=== PATIENT | male | born 1975 | race Caucasian/White ===

== ENCOUNTER 2018-04-08 22:38 | Emergency (ER) | payer OTHER ==
[2018-04-08 23:56] LABS: ADD MAN DIFF? NO
[2018-04-08] MEDS: FAMOTIDINE 20 MG INJ IV (23:56)
[2018-04-08] MEDS: METOCLOPRAMIDE 10 MG INJ IV (23:56)
[2018-04-08] MEDS: DIPHENHYDRAMINE 50 MG INJ IV (23:56)
[2018-04-08] MEDS: SOD CHLORIDE 0.9% 1,000 ML IV (23:56)
[2018-04-08 23:58] LABS: WHITE BLOOD COUNT 9.6 10^3/ul (4.8-10.8)
[2018-04-08 23:58] LABS: BASOPHIL # 0.1 10^3/ul (0.0-0.1); BASOPHILS % 0.5 % (0.0-2.0); EOSINOPHILS # 0.1 10^3/ul (0.0-0.5); EOSINOPHILS % 0.6 % (0.0-7.0); HEMATOCRIT 48.3 % (42.0-52.0); HEMOGLOBIN 16.3 g/dl (14.0-18.0); LYMPHOCYTES # 2.1 10^3/ul (0.8-2.9); LYMPHOCYTES % 21.5 % (15.0-51.0); MEAN CORPUSCULAR HEMOGLOBIN 31.7 pg (29.0-33.0); MEAN CORPUSCULAR HGB CONC 33.7 g/dl (32.0-37.0); MEAN PLATELET VOLUME 8.5 fl (7.4-10.4); MONOCYTE # 0.9 10^3/ul (0.3-0.9); MONOCYTES % 9.3 % (0.0-11.0); NEUTROPHIL # 6.5 10^3/ul (1.6-7.5); NEUTROPHILS % 67.6 % (39.0-77.0); PLATELET COUNT 249 10^3/UL (140-415); RED BLOOD COUNT 5.14 10^6/ul (4.70-6.10)
[2018-04-09 00:17] LABS: ALANINE AMINOTRANSFERASE 8 IU/L (13-69); ALBUMIN/GLOBULIN RATIO 1.31; ALKALINE PHOSPHATASE 61 IU/L (42-121); ANION GAP 13 (5-13); ASPARTATE AMINO TRANSFERASE 17 IU/L (15-46); BILIRUBIN,INDIRECT 1.3 mg/dl (0-1.1); BILIRUBIN,TOTAL 1.3 mg/dl (0.2-1.3); BLOOD UREA NITROGEN 27 mg/dl (7-20); CALCIUM 10.3 mg/dl (8.4-10.2); CARBON DIOXIDE 26 mmol/L (21-31); CHLORIDE 101 mmol/L (97-110); CREATININE 0.92 mg/dl (0.61-1.24); Estimated GFR > 60 mL/min (>60); GLUCOSE 160 mg/dl (70-220); LIPASE 51 U/L (23-300); POTASSIUM 3.7 mmol/L (3.5-5.1); SODIUM 140 mmol/L (135-144); TOTAL PROTEIN 8.8 g/dl (6.1-8.1)
[2018-04-09] MEDS: HYDROmorphONE 2 MG/ML SYG IV (00:28)
[2018-04-09 00:29] LABS: TROPONIN-I < 0.012 ng/ml (0.000-0.120)
[2018-04-09 01:58] LABS: URINE BLOOD (Dip) POC Negative (NEGATIVE); URINE GLUCOSE (Dip) POC Negative (NEGATIVE); URINE KETONES (Dip) POC Trace (NEGATIVE); URINE LEUKOCYTE EST (Dip) POC Negative (NEGATIVE); URINE NITRITE (Dip) POC Negative (NEGATIVE); URINE TOTAL PROTEIN POC 2+ (NEGATIVE)
[2018-04-09] MEDS ORDERED: HYDROmorphONE 2 MG/ML SYG IV (02:27)
[2018-04-09] MEDS: HYDROmorphONE 1 MG/ML SYG IV (02:36)
[2018-04-09] MEDS: DIATR MEGLU/DIATRIZOATE SODIUM 120 ML BTL PO (02:55)
== END 2018-04-09 03:20 | disposition home or self-care (01) ==
LOC: E/R 22:38
DX: R10.84 Generalized abdominal pain (principal); R11.10 Vomiting, unspecified
CPT/HCPCS: 36415; 74176; 80053; 81003; 83690; 84484; 85025; 93005; 96374; 96375; 96376; 99285-25

== ENCOUNTER 2018-04-13 22:19 | Inpatient (IN) | payer OTHER ==
[2018-04-13] MEDS: PANTOPRAZOLE IV 80 MG in SOD CHLORIDE 0.9% 100 ML IV (22:34)
[2018-04-13] MEDS: ONDANSETRON 4 MG INJ IV (22:55)
[2018-04-13] MEDS: morphine 4 MG/ML VIAL IV (22:55)
[2018-04-13] MEDS: CEFTRIAXONE 1 GM/50 ML (PMX) 50 ML IVPB (22:56)
[2018-04-13] MEDS: SOD CHLORIDE 0.9% 1,000 ML IV (22:56)
[2018-04-13 23:05] LABS: ADD MAN DIFF? NO
[2018-04-13 23:14] LABS: BASOPHIL # 0.1 10^3/ul (0.0-0.1); BASOPHILS % 0.5 % (0.0-2.0); EOSINOPHILS % 0.1 % (0.0-7.0); HEMATOCRIT 47.1 % (42.0-52.0); HEMOGLOBIN 16.7 g/dl (14.0-18.0); LYMPHOCYTES # 2.1 10^3/ul (0.8-2.9); MEAN CORPUSCULAR HEMOGLOBIN 32.2 pg (29.0-33.0); MEAN CORPUSCULAR HGB CONC 35.5 g/dl (32.0-37.0); MEAN CORPUSCULAR VOLUME 90.8 fl (82.0-101.0); MEAN PLATELET VOLUME 9.1 fl (7.4-10.4); MONOCYTES % 7.7 % (0.0-11.0); NEUTROPHIL # 9.9 10^3/ul (1.6-7.5); NEUTROPHILS % 75.1 % (39.0-77.0); PLATELET COUNT 305 10^3/UL (140-415); RED BLOOD COUNT 5.19 10^6/ul (4.70-6.10)
[2018-04-13 23:14] LABS: WHITE BLOOD COUNT 13.2 10^3/ul (4.8-10.8)
[2018-04-13] MEDS: ONDANSETRON INJ 8 MG in DEXTROSE 5% 50 ML IVPB (23:37)
[2018-04-13] MEDS: OCTREOTIDE 50 MCG in SOD CHLORIDE 0.9% 25 ML IVPB (23:37)
[2018-04-13] MEDS: PANTOPRAZOLE IV 80 MG in SOD CHLORIDE 0.9% 100 ML IVPB (23:37)
[2018-04-13 23:39] LABS: ALANINE AMINOTRANSFERASE 14 IU/L (13-69); ALBUMIN 5.1 g/dl (3.3-4.9); ALBUMIN/GLOBULIN RATIO 1.27; ALKALINE PHOSPHATASE 72 IU/L (42-121); ANION GAP 20 (5-13); ASPARTATE AMINO TRANSFERASE 21 IU/L (15-46); BILIRUBIN,INDIRECT 0.8 mg/dl (0-1.1); BILIRUBIN,TOTAL 0.8 mg/dl (0.2-1.3); BLOOD UREA NITROGEN 17 mg/dl (7-20); CALCIUM 10.5 mg/dl (8.4-10.2); CARBON DIOXIDE 23 mmol/L (21-31); CHLORIDE 97 mmol/L (97-110); CREATININE 1.12 mg/dl (0.61-1.24); Estimated GFR > 60 mL/min (>60); GLUCOSE 180 mg/dl (70-220); POTASSIUM 3.6 mmol/L (3.5-5.1); SODIUM 140 mmol/L (135-144); TOTAL PROTEIN 9.1 g/dl (6.1-8.1)
[2018-04-13] MEDS: OCTREOTIDE 500 MCG in SOD CHLORIDE 0.9% 49 ML IV (23:46)
[2018-04-13 23:50] LABS: TROPONIN-I < 0.012 ng/ml (0.000-0.120)
[2018-04-13 23:59] LABS: INR 0.96; PROTIME 12.9 Sec (11.9-14.9)
[2018-04-14] MEDS: HYDROmorphONE 0.5 MG/0.5 ML SYG IV (00:54)
[2018-04-14] MEDS: PANTOPRAZOLE IV 80 MG in SOD CHLORIDE 0.9% 100 ML IV ×4 (02:43→20:59)
[2018-04-14] MEDS: SOD CHLORIDE 0.9% 1,000 ML IV ×3 (02:44→20:59)
[2018-04-14] MEDS: HYDROmorphONE 1 MG/ML SYG IV ×5 (03:03→21:04)
[2018-04-14 06:21] LABS: ADD MAN DIFF? NO
[2018-04-14 06:28] LABS: BASOPHILS % 0.2 % (0.0-2.0); HEMATOCRIT 40.9 % (42.0-52.0); HEMOGLOBIN 14.4 g/dl (14.0-18.0); LYMPHOCYTES % 12.1 % (15.0-51.0); MEAN CORPUSCULAR HEMOGLOBIN 32.6 pg (29.0-33.0); MEAN CORPUSCULAR HGB CONC 35.2 g/dl (32.0-37.0); MEAN CORPUSCULAR VOLUME 92.5 fl (82.0-101.0); MEAN PLATELET VOLUME 9.1 fl (7.4-10.4); MONOCYTES % 6.2 % (0.0-11.0); NEUTROPHIL # 13.4 10^3/ul (1.6-7.5); NEUTROPHILS % 80.8 % (39.0-77.0); PLATELET COUNT 239 10^3/UL (140-415); RED BLOOD COUNT 4.42 10^6/ul (4.70-6.10); RED CELL DISTRIBUTION WIDTH 12.4 % (11.5-14.5)
[2018-04-14 06:28] LABS: WHITE BLOOD COUNT 16.6 10^3/ul (4.8-10.8)
[2018-04-14] MEDS: ONDANSETRON 4 MG INJ IV (06:53)
[2018-04-14] MEDS: OCTREOTIDE 1 MG in DEXTROSE 5% 95 ML IV ×2 (06:55→20:59)
[2018-04-14 07:17] LABS: ANION GAP 15 (5-13); BLOOD UREA NITROGEN 16 mg/dl (7-20); CALCIUM 9.5 mg/dl (8.4-10.2); CARBON DIOXIDE 26 mmol/L (21-31); CHLORIDE 101 mmol/L (97-110); CREATININE 0.84 mg/dl (0.61-1.24); Estimated GFR > 60 mL/min (>60); GLUCOSE 172 mg/dl (70-220); SODIUM 142 mmol/L (135-144)
[2018-04-14] MEDS ORDERED: hydrALAzine 20 MG INJ IV (16:00)
[2018-04-14] MEDS ORDERED: METOCLOPRAMIDE 10 MG INJ IV (16:00)
[2018-04-14] MEDS ORDERED: LABETALOL HCL 20MG INJ IV (16:00)
[2018-04-14] MEDS ORDERED: ONDANSETRON 4 MG INJ IV (16:00)
[2018-04-15] MEDS: HYDROmorphONE 1 MG/ML SYG IV ×6 (01:13→22:24)
[2018-04-15] MEDS: METOCLOPRAMIDE 10 MG INJ IV ×2 (05:33→11:51)
[2018-04-15] MEDS: ONDANSETRON 4 MG INJ IV (05:33)
[2018-04-15] MEDS: PANTOPRAZOLE IV 80 MG in SOD CHLORIDE 0.9% 100 ML IV ×2 (07:26→17:36)
[2018-04-15] MEDS: SOD CHLORIDE 0.9% 1,000 ML IV ×2 (07:26→17:36)
[2018-04-15] MEDS: INFLUENZA VIRUS VACCINE 0.5 ML (DISPENSING) IM* (09:15)
[2018-04-15] MEDS: DICYCLOMINE 10 MG CAP PO (21:13)
[2018-04-16] MEDS: HYDROmorphONE 1 MG/ML SYG IV ×5 (03:03→20:26)
[2018-04-16] MEDS: PANTOPRAZOLE IV 80 MG in SOD CHLORIDE 0.9% 100 ML IV ×2 (04:44→14:24)
[2018-04-16] MEDS: SOD CHLORIDE 0.9% 1,000 ML IV ×2 (04:44→14:24)
[2018-04-16] MEDS: DICYCLOMINE 10 MG CAP PO ×3 (06:46→20:29)
[2018-04-16 07:08] LABS: ADD MAN DIFF? NO
[2018-04-16 07:16] LABS: WHITE BLOOD COUNT 8.6 10^3/ul (4.8-10.8)
[2018-04-16 07:16] LABS: BASOPHIL # 0.1 10^3/ul (0.0-0.1); BASOPHILS % 0.6 % (0.0-2.0); EOSINOPHILS # 0.2 10^3/ul (0.0-0.5); EOSINOPHILS % 1.9 % (0.0-7.0); HEMATOCRIT 40.7 % (42.0-52.0); HEMOGLOBIN 13.9 g/dl (14.0-18.0); LYMPHOCYTES # 2.2 10^3/ul (0.8-2.9); LYMPHOCYTES % 24.9 % (15.0-51.0); MEAN CORPUSCULAR HEMOGLOBIN 32.2 pg (29.0-33.0); MEAN CORPUSCULAR HGB CONC 34.2 g/dl (32.0-37.0); MEAN CORPUSCULAR VOLUME 94.2 fl (82.0-101.0); MEAN PLATELET VOLUME 9.2 fl (7.4-10.4); NEUTROPHIL # 5.3 10^3/ul (1.6-7.5); NEUTROPHILS % 61.3 % (39.0-77.0); PLATELET COUNT 220 10^3/UL (140-415); RED BLOOD COUNT 4.32 10^6/ul (4.70-6.10); RED CELL DISTRIBUTION WIDTH 12.1 % (11.5-14.5)
[2018-04-16 07:44] LABS: ANION GAP 4 (5-13); BLOOD UREA NITROGEN 8 mg/dl (7-20); CALCIUM 9.3 mg/dl (8.4-10.2); CARBON DIOXIDE 34 mmol/L (21-31); CHLORIDE 101 mmol/L (97-110); Estimated GFR > 60 mL/min (>60); GLUCOSE 100 mg/dl (70-220); POTASSIUM 3.5 mmol/L (3.5-5.1); SODIUM 139 mmol/L (135-144)
[2018-04-17] MEDS: HYDROmorphONE 1 MG/ML SYG IV ×6 (00:16→21:04)
[2018-04-17] MEDS: SOD CHLORIDE 0.9% 1,000 ML IV ×3 (00:16→20:00)
[2018-04-17] MEDS: PANTOPRAZOLE IV 80 MG in SOD CHLORIDE 0.9% 100 ML IV ×2 (00:16→10:25)
[2018-04-17] MEDS: DICYCLOMINE 10 MG CAP PO ×3 (05:02→21:04)
[2018-04-17 06:06] LABS: ADD MAN DIFF? NO
[2018-04-17 06:27] LABS: WHITE BLOOD COUNT 7.6 10^3/ul (4.8-10.8)
[2018-04-17 06:27] LABS: BASOPHIL # 0.1 10^3/ul (0.0-0.1); BASOPHILS % 0.7 % (0.0-2.0); EOSINOPHILS # 0.3 10^3/ul (0.0-0.5); EOSINOPHILS % 3.7 % (0.0-7.0); HEMOGLOBIN 13.8 g/dl (14.0-18.0); LYMPHOCYTES # 2.3 10^3/ul (0.8-2.9); LYMPHOCYTES % 29.6 % (15.0-51.0); MEAN CORPUSCULAR HEMOGLOBIN 32.2 pg (29.0-33.0); MEAN CORPUSCULAR HGB CONC 34.5 g/dl (32.0-37.0); MEAN CORPUSCULAR VOLUME 93.5 fl (82.0-101.0); MEAN PLATELET VOLUME 9.1 fl (7.4-10.4); MONOCYTE # 0.8 10^3/ul (0.3-0.9); MONOCYTES % 10.9 % (0.0-11.0); NEUTROPHIL # 4.2 10^3/ul (1.6-7.5); NEUTROPHILS % 54.7 % (39.0-77.0); PLATELET COUNT 211 10^3/UL (140-415); RED BLOOD COUNT 4.28 10^6/ul (4.70-6.10); RED CELL DISTRIBUTION WIDTH 11.9 % (11.5-14.5)
[2018-04-17 06:49] LABS: ANION GAP 6 (5-13); BLOOD UREA NITROGEN 8 mg/dl (7-20); CALCIUM 9.1 mg/dl (8.4-10.2); CARBON DIOXIDE 30 mmol/L (21-31); CHLORIDE 102 mmol/L (97-110); CREATININE 0.74 mg/dl (0.61-1.24); Estimated GFR > 60 mL/min (>60); GLUCOSE 105 mg/dl (70-220); POTASSIUM 3.9 mmol/L (3.5-5.1); SODIUM 138 mmol/L (135-144)
[2018-04-17] MEDS: METOCLOPRAMIDE 10 MG INJ IV (15:25)
[2018-04-18] MEDS: HYDROmorphONE 1 MG/ML SYG IV ×4 (00:27→12:25)
[2018-04-18] MEDS: SOD CHLORIDE 0.9% 1,000 ML IV (03:50)
[2018-04-18] MEDS: PANTOPRAZOLE (EC) 40 MG TAB PO (05:36)
[2018-04-18] MEDS: DICYCLOMINE 10 MG CAP PO (05:36)
[2018-04-18 05:54] LABS: ADD MAN DIFF? NO
[2018-04-18 05:59] LABS: BASOPHIL # 0.1 10^3/ul (0.0-0.1); BASOPHILS % 0.7 % (0.0-2.0); EOSINOPHILS # 0.3 10^3/ul (0.0-0.5); EOSINOPHILS % 4.7 % (0.0-7.0); HEMATOCRIT 39.5 % (42.0-52.0); HEMOGLOBIN 13.7 g/dl (14.0-18.0); LYMPHOCYTES # 2.6 10^3/ul (0.8-2.9); LYMPHOCYTES % 35.9 % (15.0-51.0); MEAN CORPUSCULAR HEMOGLOBIN 32.2 pg (29.0-33.0); MEAN CORPUSCULAR HGB CONC 34.7 g/dl (32.0-37.0); MEAN CORPUSCULAR VOLUME 92.9 fl (82.0-101.0); MONOCYTE # 0.8 10^3/ul (0.3-0.9); MONOCYTES % 10.6 % (0.0-11.0); NEUTROPHIL # 3.5 10^3/ul (1.6-7.5); NEUTROPHILS % 47.7 % (39.0-77.0); PLATELET COUNT 217 10^3/UL (140-415); RED BLOOD COUNT 4.25 10^6/ul (4.70-6.10); RED CELL DISTRIBUTION WIDTH 11.9 % (11.5-14.5)
[2018-04-18 05:59] LABS: WHITE BLOOD COUNT 7.2 10^3/ul (4.8-10.8)
[2018-04-18 06:43] LABS: ANION GAP 7 (5-13); BLOOD UREA NITROGEN 7 mg/dl (7-20); CALCIUM 9.1 mg/dl (8.4-10.2); CARBON DIOXIDE 30 mmol/L (21-31); CHLORIDE 104 mmol/L (97-110); CREATININE 0.69 mg/dl (0.61-1.24); Estimated GFR > 60 mL/min (>60); GLUCOSE 124 mg/dl (70-220); POTASSIUM 3.4 mmol/L (3.5-5.1); SODIUM 141 mmol/L (135-144)
[2018-04-18] MEDS: POTASSIUM CHLORIDE (SR) 20 MEQ TAB PO (12:52)
== END 2018-04-18 13:57 | disposition home or self-care (01) | DRG 378 ==
LOC: TEL 04-15 21:22 → E/R 22:19 → TEL 04-14 00:34
PROC: 0DB68ZX Excision of Stomach, Via Natural or Artificial Opening Endoscopic, Diagnostic (ICD-10-PCS; principal; 2018-04-14 15:20)
DX: K29.51 Unspecified chronic gastritis with bleeding (principal); K50.00 Crohn's disease of small intestine without complications; K58.0 Irritable bowel syndrome with diarrhea; K21.9 Gastro-esophageal reflux disease without esophagitis; K29.80 Duodenitis without bleeding
CPT/HCPCS: 36415; 80048; 80053; 84484; 85025; 85610; 85730; 86850; 86900; 86901; 87040; 88305; 88312; 90686; 93005; 96365; 96367; 96375; 96376; 99285-25

== ENCOUNTER 2018-08-17 00:51 | Inpatient (IN) | payer OTHER ==
[2018-08-17] MEDS: OCTREOTIDE 500 MCG in SOD CHLORIDE 0.9% 49 ML IV (01:26)
[2018-08-17] MEDS: OCTREOTIDE 50 MCG in SOD CHLORIDE 0.9% 25 ML IVPB (01:26)
[2018-08-17 01:42] LABS: ADD MAN DIFF? NO
[2018-08-17 01:44] LABS: WHITE BLOOD COUNT 14.7 10^3/ul (4.8-10.8)
[2018-08-17 01:44] LABS: BASOPHILS % 0.3 % (0.0-2.0); HEMATOCRIT 48.5 % (42.0-52.0); HEMOGLOBIN 16.7 g/dl (14.0-18.0); LYMPHOCYTES # 1.6 10^3/ul (0.8-2.9); LYMPHOCYTES % 10.9 % (15.0-51.0); MEAN CORPUSCULAR HEMOGLOBIN 31.9 pg (29.0-33.0); MEAN CORPUSCULAR HGB CONC 34.4 g/dl (32.0-37.0); MEAN CORPUSCULAR VOLUME 92.7 fl (82.0-101.0); MONOCYTE # 0.7 10^3/ul (0.3-0.9); MONOCYTES % 4.7 % (0.0-11.0); NEUTROPHIL # 12.3 10^3/ul (1.6-7.5); NEUTROPHILS % 83.7 % (39.0-77.0); PLATELET COUNT 260 10^3/UL (140-415); RED BLOOD COUNT 5.23 10^6/ul (4.70-6.10); RED CELL DISTRIBUTION WIDTH 12.9 % (11.5-14.5)
[2018-08-17] MEDS: LORAZEPAM 2 MG INJ IV (01:48)
[2018-08-17] MEDS: ONDANSETRON 4 MG INJ IV ×5 (01:48→12:37)
[2018-08-17] MEDS: SOD CHLORIDE 0.9% 1,000 ML IV (01:48)
[2018-08-17 02:03] LABS: ALANINE AMINOTRANSFERASE 14 IU/L (13-69); ALBUMIN 5.2 g/dl (3.3-4.9); ALBUMIN/GLOBULIN RATIO 1.33; ALKALINE PHOSPHATASE 76 IU/L (42-121); ANION GAP 20 (5-13); ASPARTATE AMINO TRANSFERASE 18 IU/L (15-46); BILIRUBIN,INDIRECT 1.3 mg/dl (0-1.1); BILIRUBIN,TOTAL 1.3 mg/dl (0.2-1.3); BLOOD UREA NITROGEN 25 mg/dl (7-20); CALCIUM 10.7 mg/dl (8.4-10.2); CARBON DIOXIDE 21 mmol/L (21-31); CHLORIDE 108 mmol/L (97-110); Estimated GFR > 60 mL/min (>60); GLUCOSE 204 mg/dl (70-220); SODIUM 149 mmol/L (135-144); TOTAL PROTEIN 9.1 g/dl (6.1-8.1)
[2018-08-17 02:12] LABS: PROTIME 13.3 Sec (11.9-14.9)
[2018-08-17 02:14] LABS: TROPONIN-I < 0.012 ng/ml (0.000-0.120)
[2018-08-17 02:18] LABS: PARTIAL THROMBOPLASTIN TIME 34.8 Sec (23.0-35.0)
[2018-08-17] MEDS: HYDROmorphONE 1 MG/ML SYG IV ×5 (02:32→19:44)
[2018-08-17] MEDS: PANTOPRAZOLE IV 80 MG in SOD CHLORIDE 0.9% 100 ML IVPB (02:41)
[2018-08-17] MEDS ORDERED: ACETAMINOPHEN 325 MG TAB PO (03:30)
[2018-08-17] MEDS ORDERED: ONDANSETRON 4 MG INJ IV (03:30)
[2018-08-17] MEDS: PANTOPRAZOLE IV 80 MG in SOD CHLORIDE 0.9% 100 ML IV (04:31)
[2018-08-17] MEDS ORDERED: morphine 2 MG INJ IV (08:30)
[2018-08-17] MEDS: D5W-0.45 NACL + KCL 20 MEQ 1,000 ML IV ×2 (09:10→18:35)
[2018-08-17] MEDS: HYDROmorphONE 0.5 MG/0.5 ML SYG IV ×2 (09:30→12:34)
[2018-08-17 14:29] LABS: ADD MAN DIFF? NO
[2018-08-17] MEDS: METOCLOPRAMIDE 10 MG INJ IV (14:29)
[2018-08-17 14:32] LABS: WHITE BLOOD COUNT 15.3 10^3/ul (4.8-10.8)
[2018-08-17 14:32] LABS: ABNORMAL IP MESSAGE 1; BASOPHILS % 0.2 % (0.0-2.0); HEMOGLOBIN 15.4 g/dl (14.0-18.0); LYMPHOCYTES # 2.5 10^3/ul (0.8-2.9); MEAN CORPUSCULAR HEMOGLOBIN 31.6 pg (29.0-33.0); MEAN CORPUSCULAR HGB CONC 32.8 g/dl (32.0-37.0); MEAN CORPUSCULAR VOLUME 96.5 fl (82.0-101.0); MEAN PLATELET VOLUME 9.2 fl (7.4-10.4); MONOCYTE # 1.5 10^3/ul (0.3-0.9); MONOCYTES % 10.1 % (0.0-11.0); NEUTROPHIL # 11.2 10^3/ul (1.6-7.5); NEUTROPHILS % 73.3 % (39.0-77.0); PLATELET COUNT 218 10^3/UL (140-415); POSITIVE DIFF @See below; RED BLOOD COUNT 4.87 10^6/ul (4.70-6.10); RED CELL DISTRIBUTION WIDTH 13.4 % (11.5-14.5)
[2018-08-17] MEDS: BISACODYL (EC) 5 MG TAB PO (17:58)
[2018-08-17] MEDS: PANTOPRAZOLE 40 MG INJ IV (17:58)
[2018-08-17] MEDS: PEG/ELECTROLYTES 4L BTL PO (18:08)
[2018-08-17] MEDS: LUBIPROSTONE 24 MCG CAP PO (20:42)
[2018-08-18] MEDS: HYDROmorphONE 1 MG/ML SYG IV ×6 (01:18→21:47)
[2018-08-18] MEDS: BISACODYL (EC) 5 MG TAB PO (01:25)
[2018-08-18] MEDS: PEG/ELECTROLYTES 4L BTL PO (01:25)
[2018-08-18] MEDS: D5W-0.45 NACL + KCL 20 MEQ 1,000 ML IV ×2 (04:45→17:13)
[2018-08-18 05:40] LABS: ADD MAN DIFF? NO
[2018-08-18 05:48] LABS: BASOPHIL # 0.1 10^3/ul (0.0-0.1); BASOPHILS % 0.4 % (0.0-2.0); EOSINOPHILS # 0.1 10^3/ul (0.0-0.5); EOSINOPHILS % 1.1 % (0.0-7.0); HEMATOCRIT 44.1 % (42.0-52.0); HEMOGLOBIN 14.7 g/dl (14.0-18.0); LYMPHOCYTES # 3.5 10^3/ul (0.8-2.9); LYMPHOCYTES % 30.1 % (15.0-51.0); MEAN CORPUSCULAR HGB CONC 33.3 g/dl (32.0-37.0); MEAN CORPUSCULAR VOLUME 95.9 fl (82.0-101.0); MEAN PLATELET VOLUME 9.3 fl (7.4-10.4); MONOCYTE # 1.1 10^3/ul (0.3-0.9); MONOCYTES % 9.8 % (0.0-11.0); NEUTROPHIL # 6.8 10^3/ul (1.6-7.5); NEUTROPHILS % 58.3 % (39.0-77.0); PLATELET COUNT 195 10^3/UL (140-415); RED CELL DISTRIBUTION WIDTH 13.1 % (11.5-14.5)
[2018-08-18 05:48] LABS: WHITE BLOOD COUNT 11.6 10^3/ul (4.8-10.8)
[2018-08-18 06:13] LABS: INR 0.99; PROTIME 13.2 Sec (11.9-14.9)
[2018-08-18] MEDS: PANTOPRAZOLE 40 MG INJ IV ×2 (06:28→17:13)
[2018-08-18] MEDS: ONDANSETRON 4 MG INJ IV ×2 (06:28→14:14)
[2018-08-18 06:33] LABS: ANION GAP 11 (5-13); BLOOD UREA NITROGEN 15 mg/dl (7-20); CALCIUM 9.3 mg/dl (8.4-10.2); CARBON DIOXIDE 28 mmol/L (21-31); CHLORIDE 107 mmol/L (97-110); CREATININE 0.71 mg/dl (0.61-1.24); Estimated GFR > 60 mL/min (>60); GLUCOSE 109 mg/dl (70-220); POTASSIUM 3.8 mmol/L (3.5-5.1); SODIUM 146 mmol/L (135-144)
[2018-08-18] MEDS: LUBIPROSTONE 24 MCG CAP PO ×2 (08:46→20:38)
[2018-08-18] MEDS ORDERED: PROPOFOL 200 MG INJ (12:06)
[2018-08-18] MEDS ORDERED: LIDOCAINE 2% (SDV) 5 ML INJ (12:06)
[2018-08-18] MEDS: MESALAMINE (SR) 250 MG CAP PO (21:16)
[2018-08-19] MEDS: D5W-0.45 NACL + KCL 20 MEQ 1,000 ML IV ×3 (00:30→14:16)
[2018-08-19] MEDS: HYDROmorphONE 1 MG/ML SYG IV ×5 (01:56→18:27)
[2018-08-19] MEDS: PANTOPRAZOLE 40 MG INJ IV ×2 (05:39→17:37)
[2018-08-19] MEDS: MESALAMINE (SR) 250 MG CAP PO ×4 (08:41→21:05)
[2018-08-19] MEDS: LUBIPROSTONE 24 MCG CAP PO ×2 (08:41→21:05)
[2018-08-19] MEDS: ONDANSETRON 4 MG INJ IV (12:22)
[2018-08-19] MEDS: HYDROCODONE/APAP (5/325) TAB PO (22:20)
[2018-08-20] MEDS: HYDROmorphONE 1 MG/ML SYG IV (06:38)
[2018-08-20] MEDS: PANTOPRAZOLE 40 MG INJ IV (06:38)
[2018-08-20] MEDS: MESALAMINE (SR) 250 MG CAP PO ×2 (08:59→13:02)
[2018-08-20] MEDS: LUBIPROSTONE 24 MCG CAP PO (08:59)
[2018-08-20] MEDS: HYDROCODONE/APAP (5/325) TAB PO (10:45)
== END 2018-08-20 16:15 | disposition home or self-care (01) | DRG 394 ==
LOC: E/R 00:51 → MS1 03:27
PROC: 0DBB8ZX Excision of Ileum, Via Natural or Artificial Opening Endoscopic, Diagnostic (ICD-10-PCS; principal; 2018-08-18 11:50)
DX: K64.4 Residual hemorrhoidal skin tags (principal); K92.0 Hematemesis; K63.3 Ulcer of intestine; K62.5 Hemorrhage of anus and rectum; K29.50 Unspecified chronic gastritis without bleeding; Z87.19 Personal history of other diseases of the digestive system
CPT/HCPCS: 36415; 71045; 74018; 80048; 80053; 84484; 85025; 85610; 85730; 86850; 86900; 86901; 88305; 93005; 96374; 96375; 96376; 99285-25